=== PATIENT | female | born 1990 | race Caucasian/White ===

== ENCOUNTER 2018-04-06 21:13 | Emergency (ER) | payer OTHER ==
[~2018-04-06] VITALS: Ht 165.1 cm; Wt 97.1 kg
[~2018-04-06 21:13] MED LIST: PRENATAL + DHA1 EAC1
[2018-04-06] MEDS ORDERED: PRENATAL TABLE1 EACH PO (21:27)
[2018-04-07] MEDS ORDERED: PYRIDIUM DS200 MG PO (02:29)
[2018-04-07] MEDS ORDERED: MACROBID 100 M100 MG PO (02:29)
== END 2018-04-07 02:24 | disposition home or self-care (01) ==
LOC: ER 21:13
DX: O23.41 Unspecified infection of urinary tract in pregnancy, first trimester (principal); N39.0 Urinary tract infection, site not specified; O26.891 Other specified pregnancy related conditions, first trimester; J11.1 Influenza due to unidentified influenza virus with other respiratory manifestations; Z34.81 Encounter for supervision of other normal pregnancy, first trimester

== ENCOUNTER 2018-04-24 17:08 | Emergency (ER) | payer OTHER ==
[~2018-04-24] VITALS: Ht 165.1 cm; Wt 97.1 kg
[~2018-04-24 17:08] MED LIST changes: +MACROBID 100 M100 MG PO; +PRENATAL TABLE1 EACH PO; +PYRIDIUM DS200 MG PO
== END 2018-04-24 20:45 | disposition home or self-care (01) ==
LOC: ER 17:08
DX: O26.891 Other specified pregnancy related conditions, first trimester (principal); R10.2 Pelvic and perineal pain; Z34.81 Encounter for supervision of other normal pregnancy, first trimester

== ENCOUNTER 2018-05-07 21:30 | Emergency (ER) | payer OTHER ==
[~2018-05-07] VITALS: Ht 165.1 cm; Wt 97.1 kg
== END 2018-05-08 03:01 | disposition home or self-care (01) ==
LOC: ER 21:30
DX: O26.891 Other specified pregnancy related conditions, first trimester (principal); R10.2 Pelvic and perineal pain; Z34.81 Encounter for supervision of other normal pregnancy, first trimester

== ENCOUNTER 2018-06-06 18:14 | Emergency (ER) | payer OTHER ==
[~2018-06-06] VITALS: Ht 167.6 cm; Wt 99.3 kg
== END 2018-06-06 20:10 | disposition home or self-care (01) ==
LOC: ER 18:14
DX: O23.42 Unspecified infection of urinary tract in pregnancy, second trimester (principal); Z34.02 Encounter for supervision of normal first pregnancy, second trimester

== ENCOUNTER 2018-08-05 18:52 | Outpatient (CLI) | payer OTHER | END 2018-08-06 12:52 | disposition home or self-care (01) | LOC: OBS/DEL 18:52 | DX: O23.42 Unspecified infection of urinary tract in pregnancy, second trimester (principal); O60.02 Preterm labor without delivery, second trimester; Z34.82 Encounter for supervision of other normal pregnancy, second trimester ==

== ENCOUNTER 2018-08-30 13:01 | Emergency (ER) | payer OTHER ==
[~2018-08-30] VITALS: Ht 167.6 cm; Wt 107.5 kg
[2018-08-30] MEDS ORDERED: PRENATAL + DHA1 EAC1 PO (13:33)
== END 2018-08-30 16:24 | disposition home or self-care (01) ==
LOC: ER 13:01
DX: B34.9 Viral infection, unspecified (principal)

== ENCOUNTER 2018-10-26 13:38 | Outpatient (CLI) | payer OTHER ==
[~2018-10-26 13:38] MED LIST changes: +PRENATAL + DHA1 EAC1 PO
== END 2018-10-27 13:48 | disposition home or self-care (01) ==
LOC: OBS/DEL 13:38
DX: O26.893 Other specified pregnancy related conditions, third trimester (principal); O47.03 False labor before 37 completed weeks of gestation, third trimester; Z34.83 Encounter for supervision of other normal pregnancy, third trimester

== ENCOUNTER 2018-11-12 09:43 | Inpatient (IN) | payer OTHER ==
[~2018-11-12] VITALS: Ht 167.6 cm; Wt 3.2 kg
== END 2018-11-29 15:16 | disposition home or self-care (01) | DRG 785 ==
LOC: O/R 11-26 06:04 → LDR 11-26 06:04 → OB/GYN 11-26 06:04 → O/R 11-26 08:22 → OB/GYN 11-26 10:11 → O/R 11-26 13:49 → OB/GYN 11-26 13:53
PROVIDERS: ADMIT Obstetrics & Gynecology
PROC: 0UL70ZZ Occlusion of Bilateral Fallopian Tubes, Open Approach (ICD-10-PCS; 2018-11-26)
PROC: 4A1HXCZ Monitoring of Products of Conception, Cardiac Rate, External Approach (ICD-10-PCS; 2018-11-26)
PROC: 10D00Z1 Extraction of Products of Conception, Low, Open Approach (ICD-10-PCS; principal; 2018-11-26 07:00)
DX: O34.211 Maternal care for low transverse scar from previous cesarean delivery (principal); O75.82 Onset (spontaneous) of labor after 37 completed weeks of gestation but before 39 completed weeks gestation, with delivery by (planned) cesarean section; Z3A.39 39 weeks gestation of pregnancy; Z37.0 Single live birth; Z30.2 Encounter for sterilization

== ENCOUNTER 2024-03-12 11:02 | Emergency (ER) | payer OTHER ==
[~2024-03-12] VITALS: Ht 165.1 cm; Wt 117.9 kg
[2024-03-12] MEDS ORDERED: IRON236 MG PO (11:48)
[2024-03-12] MEDS ORDERED: METOCLOPRAMIDE HCL 5 MG/ML VIAL IM ONE (12:45)
[2024-03-12] MEDS ORDERED: FAMOtidine 20 MG TABLET PO ONE (12:45)
[2024-03-12] MEDS ORDERED: HYOSCYAMINE SULFATE 0.125 MG TAB.SUBL SL ONE (12:45)
[2024-03-12 13:00] LABS: HEMATOCRIT 31.5 % (36.0-45.00); MEAN CORPUSCULAR HGB CONC 30.9 g/dl (32.0-36.0); PLATELET COUNT 352 K/uL (150-450); RED BLOOD COUNT 4.87 M/uL (4.00-6.00)
[2024-03-12 13:01] LABS: HEMOGLOBIN 9.7 g/dL (12.0-15.00); MEAN CELL VOLUME 64.7 fL (80.00-100.00); MEAN CORPUSCULAR HEMOGLOBIN 19.9 pg (27.00-32.0); RED CELL DISTRIBUTION WIDTH 21.5 % (11.5-14.5)
[2024-03-12 13:24] LABS: ALBUMIN 3.2 gm/dL (3.4-5.0); BILIRUBIN TOTAL 0.57 mg/dL (0.3-1.2); CALCIUM 8.6 mg/dL (8.5-10.1); CREATININE SERUM 0.65 mg/dL (0.55-1.02); GFR 105.63; POTASSIUM 3.69 mEq/L (3.5-5.1); TOTAL PROTEIN 7.2 gm/dL (6.4-8.2)
== END 2024-03-12 14:42 | disposition home or self-care (01) ==
LOC: ER 11:02
PROVIDERS: General Practice
DX: B34.9 Viral infection, unspecified (principal); Z20.822 Contact with and (suspected) exposure to COVID-19